=== PATIENT | male | born 1975 | race Two or more races ===

== ENCOUNTER 2025-04-17 19:22 | Emergency (ER) | payer MEDICAID, SELFPAY ==
[2025-04-17 19:24] VITALS: BMI 33.4
--- NOTE | 2025-04-17 19:38 | EKG_ITS ---
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
[2025-04-17 19:48] VITALS: BP 164/99; PULSE 59; RESP 18; TEMP 36.9; O2SAT 99
--- NOTE | 2025-04-17 20:29 | EDRME_ITS ---
Rapid Medical Screening Exam RME Arrival date/time: 04/17/25 19:22 Chief Complaint: General Adult/Misc Complain Time Seen by Provider: 04/17/25 19:55 Vital signs: Vital Signs Temperature 98.4 F 04/17/25 19:48 Pulse Rate 59 L 04/17/25 19:48 Respiratory Rate 18 04/17/25 19:48 Blood Pressure 164/99 H 04/17/25 19:48 Pulse Oximetry (%) 99 04/17/25 19:48 Oxygen Delivery Method Room Air 04/17/25 19:48 Vital signs reviewed by provider: Yes RME Narrative: 50-year-old male with no past medical problems presents to the ED with a complaint of chest pain, shortness of breath, dizziness, occipital headache, blurry vision, and nausea since yesterday. He denies any fever or chills, vomiting or diarrhea. He does not take any medications for his blood pressure. He will check his blood pressure periodically at [facility] or [facility] and it has always been fairly normal. I have greeted and performed a focused initial assessment of this patient. A comprehensive ED assessment and evaluation of the patient, analysis of all test results, and completion of the medical decision making process will be conducted by additional ED providers.
--- NOTE | 2025-04-17 20:33 | XR_ITS ---
Examination: CT brain head without contrast. 2-D sagittal coronal reconstructions Date and time of exam:April 17, 2025, 2119 hours INDICATIONS: Headache. Blurred vision high blood pressure today CTDI: vol (mGy):56 DLP: (mGycm):1108 Technique: Multiple CT axial sections of the brain have been obtained, 5 mm slice thickness. Contrast has not been administered. 2-D sagittal, coronal reconstructions have been obtained Low dose protocols were performed. One or more of the following dose reduction techniques were used; automated exposure control, adjustment of the mA and/or KV according to patient size, use of iterative reconstruction technique. Findings: No significant ventricular enlargement. Intra-axial or extra-axial hemorrhage density is not seen. No mass effect or midline shift Basal cisterns are not remarkable. Fourth ventricle is midline. Cranial vault intact. Impression: Negative for acute hemorrhage, mass effect or midline shift
[2025-04-17 20:54] LABS: Collection Type, Urine Clean Catch
[2025-04-17 20:57] LABS: Basophils # (Auto) 0.1 Thou/mm3 (0.0-0.2); Basophils % (Auto) 1 % (0-2.5); Eosinophils # (Auto) 0.2 Thou/mm3 (0.0-0.5); Eosinophils % (Auto) 2 % (0-10); Hematocrit 42.5 % (41.0-53.0); Hemoglobin 15.0 g/dL (13.5-16.0); Immature Granulocytes Auto 0.08 Thou/mm3 (0.00-0.00); Lymphocytes # (Auto) 6.8 Thou/mm3 (1.0-4.8); Lymphocytes % (Auto) 52 % (10-50); Mean Corpuscular HGB Conc 35.3 g/dl (31.0-37.0); Mean Corpuscular Hemoglobin 31.0 pg (25.0-35.0); Mean Corpuscular Volume 88 fL (80-100); Monocytes # (Auto) 1.2 Thou/mm3 (0.0-0.8); Monocytes % (Auto) 9 % (0-12); Neutrophils # (Auto) 4.7 Thou/mm3 (1.8-7.7); Neutrophils % (Auto) 36 % (37-80); Nucleated Red Blood Cell # 0.00 Thou/mm3 (0.00-0.00); Nucleated Red Blood Cell % 0 /100 WBC (0); Platelet Count 276 Thou/mm3 (140-440); RDW Standard Deviation 45.1 fL (35.1-43.9); Red Blood Count 4.84 Miln/mm3 (4.50-5.90); White Blood Count 13.2 Thou/mm3 (3.8-10.6)
[2025-04-17 21:07] LABS: Bilirubin,Urine Negative (Negative); Blood,Urine Negative (Negative); Clarity,Urine Clear (Clear/Hazy); Color,Urine Lt-Yellow (Lt Yel-Yel); Glucose, Urine Negative (Negative); Ketones,Urine Negative (Negative); Leukocyte Esterase,Urine Negative (Negative); Nitrite,Urine Negative (Negative); PH,Urine 5.5 (5.0-7.0); Protein,Urine Negative (Neg - Trace); RBC,Urine 2 /hpf (0-3); Specific Gravity,Urine 1.029 (1.001-1.035); Squamous Epithelial Cell,Urine < 1 /hpf (0-5); Urobilinogen,Urine Negative mg/dL (0.0-1.0); WBC,Urine 1 /hpf (0-5)
[2025-04-17 21:24] LABS: Alanine Aminotransferase 29 U/L (10-49); Albumin, Serum 4.8 gm/dL (3.5-5.0); Albumin/Globulin Ratio 1.8 (1.2-2.2); Alkaline Phosphatase 93 U/L (46-116); Anion Gap 13 (7-16); Aspartate Amino Transferase 20 U/L (0-34); BUN/Creatinine Ratio 11 Ratio (12-20); Bilirubin,Total 1.1 mg/dL (0.3-1.2); Blood Urea Nitrogen 11 mg/dL (9-23); Calcium 9.9 mg/dL (8.3-10.6); Calcium (Corrected) 9.9 mg/dL (8.5-10.1); Carbon Dioxide 24.1 mMol/L (20.0-31.0); Chloride 104 mMol/L (98-107); Creatinine (Component) 1.0 mg/dL (0.6-1.3); Estimated Creatinine Clearance 100.1 mL/min (>60); Globulin 2.7 gm/dL (2.3-3.5); Glucose 104 mg/dL (74-106); Magnesium 2.1 mg/dL (1.6-2.6); Osmolality,Calculated 280 (275-295); Potassium 3.7 mMol/L (3.4-5.1); Sodium 141 mMol/L (136-145); Total Protein 7.5 gm/dL (5.7-8.2); Troponin I < 0.020 ng/mL (0.0-0.045); eGFR > 60 See Note
[2025-04-17 22:26] LABS: Amphetamine/Methamp Scrn,U Negative (Negative); Barbiturate Screen,Urine Negative (Negative); Benzodiazepines Screen,Urine Negative (Negative); Benzoylecgonine Screen, Ur Negative (Negative); Fentanyl Screen,Urine Negative (Negative); Opiate Screen,Urine Negative (Negative); THC Screen,Urine Negative (Negative)
[2025-04-17 22:29] LABS: LDH (Lactate Dehydrogenase) 194 U/L (120-246)
--- NOTE | 2025-04-17 22:42 | EDNOTE_ITS ---
ED Headache RME/HPI General Chief Complaint: [facility] Complain Stated Complaint: RUNNY NOSE, LIGHT HEADED, HIGH BP Time Seen by Provider: 04/17/25 19:55 Arrival date/time: 04/17/25 19:22 This is a 50-year-old male who denies past medical history with complaints of dizziness, headache, and anxiety. Patient also complains of high blood pressure. Patient states symptoms started when he checked his blood pressure at the pharmacy. Patient stated that it read high and he became very anxious and concerned. Patient states his blood pressure usually runs in the 150s systolic. Patient's blood pressure was 169/102 and he became very concerned. Patient reports that he has not had a physical or has not seen a doctor in a few years. Patient is not currently on any medications. Patient denies chest pain shortness of breath, fever, nausea, vomiting, diarrhea. RME / HPI RME / HPI Narrative: 50-year-old male with no past medical problems presents to the ED with a complaint of chest pain, shortness of breath, dizziness, occipital headache, blurry vision, and nausea since yesterday. He denies any fever or chills, vomiting or diarrhea. He does not take any medications for his blood pressure. He will check his blood pressure periodically at [facility] or [facility] and it has always been fairly normal. I have greeted and performed a focused initial assessment of this patient. A comprehensive ED assessment and evaluation of the patient, analysis of all test results, and completion of the medical decision making process will be conducted by additional ED providers. Related Data Allergies Allergy/AdvReac Type Severity Reaction Status Date / Time No Known Allergies Allergy Verified 04/17/25 19:24 Review of Systems Review of Systems Systems Reviewed: All systems reviewed, normal except as documented Past Medical History Past Medical History Comments PMH COMMENT: Denies ED Exam Narrative Physical exam: VITAL SIGNS: Reviewed. GENERAL APPEARANCE: Alert and interactive, follows commands, no acute distress, HEAD AND FACE: Non-traumatic. ENT: PERRL, conjuctiva pink and clear, eyelid no trauma, Mucous membrane moist. NECK: Supple, nontender, no nuchal rigidity. CHEST: No tenderness, no crepitus, no paradoxical movement, no retractions. LUNGS: Clear, well ventilated, symmetric, no rales, no wheezing, no rhonchi, no stridor, good breath sounds bilaterally. HEART: Regular rate, regular rhythm, no murmur, no gallops. ABDOMEN: Soft, nondistended, no guarding, nontender NEUROLOGICAL: Gross motor function intact sensory function intact, Appropriate for age. MUSCULOSKELETAL: low back nontender, full range of motion. EXTREMITIES: No redness no swelling no skin breakdown on bilateral foot and leg. Distal neurovascular status intact bilateral foot SKIN: Color pink, dry, no rash, patient has wound to forearm with Steri-Strips to approximate wound. No erythema or swelling noted. Course Quality Measures none Orders Category Date Time Status Bedside COVID-19 Antigen Test NOW Care 04/17/25 20:13 Completed Bedside Influenza A&B Antigen Test NOW Care 04/17/25 20:14 Completed EKG (ED ONLY) *Do not use* NOW Care 04/17/25 19:[address] head/brain wo con Stat Exams 04/17/25 20:33 Completed EKG (ED Only) Stat Exams 04/17/25 19:38 Draft BNP [B-Type Natriuretic Peptide] Stat Lab 04/17/25 20:37 Completed CBC Stat Lab 04/17/25 20:37 Completed Comprehensive Metabolic Panel Stat Lab 04/17/25 20:37 Completed Drug Screen,Urine Stat Lab 04/17/25 20:39 Completed LDH (Lactate Dehydrogenase) Stat Lab 04/17/25 20:37 Completed Magnesium Stat Lab 04/17/25 20:37 Completed Path Review Blood Smear Stat Lab 04/17/25 20:37 Completed Troponin I Stat Lab 04/17/25 20:37 Completed Urinalysis Stat Lab 04/17/25 20:39 Completed Vital Signs Vital signs: Vital Signs Temperature 98.4 F 04/17/25 19:48 Pulse Rate 59 L 04/17/25 19:48 Respiratory Rate 18 04/17/25 19:48 Blood Pressure 164/99 H 04/17/25 19:48 Pulse Oximetry (%) 99 04/17/25 19:48 Oxygen Delivery Method Room Air 04/17/25 19:48 PROCEDURES: EKG Interpretation #1: Date of EK04/17/25 Time of EK:45 Rate: 59 Interpretation: Interpreted by me (Sinus bradycardia) EKG Impression: No ectopy, Normal QRS and Normal intervals Additional EKG comment: q waves in lateral leads Headache MDM Narrative MDM Narrative:: Spoke to patient at length. Patient has no complaints at this time. Patient ambulatory steady gait. Patient denies dizziness and headache. Patient reports that he was mostly anxious because his blood pressure was on the higher end. Patient has an appointment with primary provider tomorrow. I let him know to d iscuss blood pressure medications and also to get a physical with labs. I told patient to buy a blood pressure machine and to document his blood pressure 2 times a day. Labs reviewed white count is 13.2 hemoglobin and hematocrit are 15 and 42.5 BMP shows sodium 141 potassium 3.7 chloride 104 bicarb 24.1 renal function unremarkable LFTs unremarkable. LDH is 194, troponin less than 0.020 BNP is 71. UA is unremarkable drug screen is unremarkable. CT of head was negative. Patient feels better and states that he has his follow-up appoint with his primary doctor tomorrow. Patient told to come back to the emergency room if symptoms change or worsen otherwise follow-up with primary doctor. ct head shows: Findings: No significant ventricular enlargement. Intra-axial or extra-axial hemorrhage density is not seen. No mass effect or midline shift Basal cisterns are not remarkable. Fourth ventricle is midline. Cranial vault intact. Impression: Negative for acute hemorrhage, mass effect or midline shift Dragon dictation: Although this document has been carefully reviewed, there may still be some phonetic and other typographical errors. These errors are purely grammatical due to imperfections in the software program and should not be construed in any way to compromise the substance of the patient's medical care during this visit. Patient data External records reviewed:: [facility] previous records Clinical information provided by:: patient Social determinants that could affect healthcare access:: none Patient has the following chronic illnesses:: see hpi How is presenting disease/condition affected by chronic disease/condition?: uneffected by Evaluation data The following diagnostics were reviewed and interpreted by me:: lab results and radiology exam(s) Lab and/or radiology exams considered but not ordered:: none Interpretation Summary: see note Medications / Prescriptions Medications or Prescriptions considered but not ordered:: none Medication administrations:: see note Consultations Consultation(s) initiated? (list below): No Diagnosis Differential diagnosis headache: migraine, tension headache, headache, sinusitis and other (htn) Most likely diagnosis given after review of the tests above:: htn Admission Indicated Admission indicated?: not indicated Admission Request Was there a request for admission?: No Disposition Plan Disposition Plan: Discharge Discharge Attestation Discharge Attestation: The patient and all family members were given an opportunity to ask questions and understood the discharge instructions. Discharge instructions specifically effects, indications for sooner follow up or return to the emergency department, and the expected course of current diagnosis. Patient condition: Stable Discharge Plan Plan Patient Disposition: HOME (Self Care) Patient condition on transfer: Stable Prescriptions/Referrals Referrals: No Primary/Family,Physician [Primary Care Provider] - In 1 week Problem List Clinical Impression: Headache, Hypertension Patient/Caregiver Discharge Instructions Discharge Activity: activity as tolerated Education Materials: Hypertension Dc Additional Instructions: Follow up with primary provider in 1-2 days. Come back to ED if symptoms change or worsen. Buy a blood pressure machine. Check blood pressure 2 times a day and document it. Please make an appointment with primary provider to get a physical and have yearly labs done. Print Language: Albanian Stand Alone Forms: Kathy Award Info., Patient Portal Info Letter MOSHE/EVIE Supervising Physician MOSHE/EVIE Supervising Physician: Eliu
[2025-04-17 22:49] VITALS: BP 163/106; BP 189/124; PULSE 55; RESP 19; TEMP 36.6; O2SAT 97
[2025-04-17 22:49] LABS: B-Type Natriuretic Peptide 71 pg/mL (0-100)
[2025-04-17 23:08] LABS: Path Review Blood Smear Sent to Pathologist
[2025-04-17 23:13] VITALS: BP 156/82; PULSE 58; RESP 20; TEMP 36.7; O2SAT 99
== END 2025-04-17 23:15 | disposition home or self-care (01) ==
PROVIDERS: Physician Assistant; Emergency Provider Emergency Medicine
DX: I10 Essential (primary) hypertension (principal); R51.9 Headache, unspecified; R00.1 Bradycardia, unspecified
CPT/HCPCS: 36415; 70450; 80053; 80307; 81001; 83615; 83735; 83880; 84484; 85025; 87400; 87811; 93005; 99284